=== PATIENT | male | born 1995 | race Caucasian/White ===

== ENCOUNTER 2019-06-15 16:07 | Emergency (ER) | payer OTHER ==
--- NOTE | 2019-06-15 18:25 | EDM.PDOC ---
ED HPI GENERAL MEDICAL PROBLEM - General Chief Complaint: General Time Seen by Provider: 06/15/19 16:45 Source of Information: Reports: Patient History Limitations: Reports: No Limitations - History of Present Illness INITIAL COMMENTS - FREE TEXT/NARRATIVE: c/o unintended ejaculation pt in class at college PM, he had the urge to void, he waited 30 minutes until the end of class, then had a strong urge, he went to the bathroom and noted semen on the floor as well as small amount in his underclothes, did not void urine states he did not have an erection had a small amount of urine prior to to class has not had urinary sxs or problems in the past is on Clomid x 6m "to increase my testosterone levels", on 1 tab daily (thinks they are 200 mg) and "my levels were too high" which pt understands to be his testosterone leves, Clomid dec'd to 1/2 tab qMon and Fri says he is a virgin, no prior erection problems, last ejaculation 2m ago he did save semen 4y ago prior chemo, and then in the past year apparently had decreased sperm counts in his semen, hence the Clomid 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, over the next yr he had several brain surgeries at [facility] and at least one round of chemo (in [place]) states he has been in remission ever since, he got MRIs q3m for surveillance, then q6m, thinks he may be down to a q12m routine last [facility] apt 6m ago, next apt next yr sometime says he is forgetful at times, denies other sxs related to his cancer, which he says had probably been there since childhood 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" and was "in the midline", does not think his pituitary was involved - Related Data Allergies Allergy/AdvReac Type Severity Reaction Status Date / Time No Known Allergies Allergy Verified 06/15/19 16:49 Home Meds: Home Meds Cholecalciferol (Vitamin D3) [Vitamin D3] 10,000 unit PO DAILY 06/15/19 [History ] Lacosamide [Vimpat] 150 mg PO BID 06/15/19 [History] Modafinil 200 mg PO BID 06/15/19 [History] Multivitamin [Multi-Vitamin Daily] 1 tab DAILY 06/15/19 [History] Venlafaxine [Effexor] 37.5 mg PO DAILY 06/15/19 [History] clomiPRAMINE HCl [Anafranil] 12.5 mg PO MOFR 06/15/19 [History] Past Medical History Musculoskeletal History: Reports: Fracture Other Musculoskeletal History: hx fx toe Neurological History: Reports: Seizure, Other (See Below) Other Neuro History: hx brain tumor germ-cell teratoma, Psychiatric History: Reports: Anxiety, Depression, Panic Attack, Suicidal Ideation Hematologic History: Reports: Blood Transfusion(s) Oncologic (Cancer) History: Reports: Brain Other Oncologic History: germ cell teratoma - Past Surgical History HEENT Surgical History: Reports: Eye Surgery Other HEENT Surgeries/Procedures: eye surgery x 2 GI Surgical History: Reports: Other (See Below) Other GI Surgeries/Procedures: hx feeding tube Oncologic Surgical History: Reports: Other (See Below) Other Oncologic Surgeries/Procedures: hx brain surgery x 8-10 Social & Family History - Family History Family Medical History: Noncontributory - Tobacco Use Smoking Status *Q: Never Smoker - Caffeine Use Caffeine Use: Reports: Soda - Alcohol Use Days Per Week of Alcohol Use: 2 Number of Drinks Per Day: 2 Total Drinks Per Week: 4 - Recreational Drug Use Recreational Drug Use: No ED ROS GENERAL - Review of Systems Review Of Systems: See Below Constitutional: Reports: No Symptoms HEENT: Reports: No Symptoms Respiratory: Reports: No Symptoms Cardiovascular: Reports: No Symptoms Endocrine: Reports: No Symptoms GI/Abdominal: Reports: No Symptoms : Reports: Discharge Musculoskeletal: Reports: No Symptoms Skin: Reports: No Symptoms Neurological: Reports: No Symptoms Psychiatric: Reports: No Symptoms Hematologic/Lymphatic: Reports: No Symptoms Immunologic: Reports: No Symptoms ED EXAM, GENERAL - Physical Exam Exam: See Below Exam Limited By: No Limitations General Appearance: Alert, WD/WN, No Apparent Distress Nose: Normal Inspection, Normal Mucosa, No Blood Neck: Normal Inspection Respiratory/Chest: No Respiratory Distress Cardiovascular: Regular Rate, Rhythm GI/Abdominal: Soft Extremities: Normal Inspection Neurological: Alert, CN II-XII Intact, Normal Cognition, No Motor/Sensory Deficits Psychiatric: Anxious Skin Exam: Warm, Dry, Intact, Normal Color, No Rash Course - Vital Signs Last Recorded V/S: Last Vital Signs Temp 36.7 C 06/15/19 16:45 Pulse 102 H 06/15/19 16:45 Resp 18 06/15/19 16:45 BP 154/94 H 06/15/19 16:45 Pulse Ox 100 06/15/19 16:45 - Orders/Labs/Meds Labs: Laboratory Tests 06/15/19 06/15/19 06/15/19 Range/Units 18:05 18:05 18:05 WBC 5.5 (4.5-12.0) X10-3/uL RBC 4.89 (4.30-5.75) x10(6)uL Hgb 15.3 (13.5-17.8) g/dL Hct 45.1 (30.0-51.3) % MCV 92.3 (80-96) fL MCH 31.3 (27.7-33.6) pg MCHC 33.9 (32.2-35.4) g/dL RDW 12.3 (11.5-15.5) % Plt Count 220 (125-369) X10(3)uL MPV 8.0 (7.4-10.4) fL Neut % (Auto) 65.2 (46-82) % Lymph % (Auto) 23.9 (13-37) % [place] % (Auto) 8.8 (4-12) % Eos % (Auto) 1 (1.0-5.0) % Baso % (Auto) 1 (0-2) % Neut # (Auto) 3.6 (1.6-8.3) # Lymph # (Auto) 1.3 (0.6-5.0) # [place] # (Auto) 0.5 (0.0-1.3) # Eos # (Auto) 0.1 (0.0-0.8) # Baso # (Auto) 0.0 (0.0-0.2) # Sodium 140 (135-145) mmol/L Potassium 3.9 (3.5-5.3) mmol/L Chloride 102 (100-110) mmol/L Carbon Dioxide 26 (21-32) mmol/L BUN 14 (7-18) mg/dL Creatinine 1.3 (0.70-1.30) mg/dL Est Cr Clr Drug Dosing 107.73 mL/min Estimated GFR (MDRD) > 60 (>60) BUN/Creatinine Ratio 10.8 (9-20) Glucose 92 (80-116) mg/dL Calcium 9.7 (8.6-10.2) mg/dL Total Bilirubin 0.3 (0.1-1.3) mg/dL AST 34 H (5-25) IU/L ALT 68 H (12-36) U/L Alkaline Phosphatase 110 (56-112) IU/L C-Reactive Protein < 0.2 L (0.5-0.9) mg/dL Total Protein 7.7 (6.0-8.0) g/dL Albumin 4.3 (3.5-5.2) g/dL Globulin 3.4 g/dL Albumin/Globulin Ratio 1.3 Urine Color (YELLOW) Urine Appearance (CLEAR) Urine pH (5.0-6.5) Ur Specific [place] (1.010-1.025) Urine Protein (NEGATIVE) mg/dL Urine Glucose (UA) (NORMAL) mg/dL Urine Ketones (NEGATIVE) mg/dL Urine Occult Blood (NEGATIVE) Urine Nitrite (NEGATIVE) Urine Bilirubin (NEGATIVE) Urine Urobilinogen (NEGATIVE) mg/dL Ur Leukocyte Esterase (NEGATIVE) Urine RBC (0-5) Urine WBC (0-5) Ur Squamous Epith Cells (NS,R,O) Amorphous Sediment Urine Bacteria (NS) 06/15/19 Range/Units 19:15 WBC (4.5-12.0) X10-3/uL RBC (4.30-5.75) x10(6)uL Hgb (13.5-17.8) g/dL Hct (30.0-51.3) % MCV (80-96) fL MCH (27.7-33.6) pg MCHC (32.2-35.4) g/dL RDW (11.5-15.5) % Plt Count (125-369) X10(3)uL MPV (7.4-10.4) fL Neut % (Auto) (46-82) % Lymph % (Auto) (13-37) % [place] % (Auto) (4-12) % Eos % (Auto) (1.0-5.0) % Baso % (Auto) (0-2) % Neut # (Auto) (1.6-8.3) # Lymph # (Auto) (0.6-5.0) # [place] # (Auto) (0.0-1.3) # Eos # (Auto) (0.0-0.8) # Baso # (Auto) (0.0-0.2) # Sodium (135-145) mmol/L Potassium (3.5-5.3) mmol/L Chloride (100-110) mmol/L Carbon Dioxide (21-32) mmol/L BUN (7-18) mg/dL Creatinine (0.70-1.30) mg/dL Est Cr Clr Drug Dosing mL/min Estimated GFR (MDRD) (>60) BUN/Creatinine Ratio (9-20) Glucose (80-116) mg/dL Calcium (8.6-10.2) mg/dL Total Bilirubin (0.1-1.3) mg/dL AST (5-25) IU/L ALT (12-36) U/L Alkaline Phosphatase (56-112) IU/L C-Reactive Protein (0.5-0.9) mg/dL Total Protein (6.0-8.0) g/dL Albumin (3.5-5.2) g/dL Globulin g/dL Albumin/Globulin Ratio Urine Color Yellow (YELLOW) Urine Appearance Clear (CLEAR) Urine pH 9.0 H (5.0-6.5) Ur Specific [place] 1.015 (1.010-1.025) Urine Protein Negative (NEGATIVE) mg/dL Urine Glucose (UA) Normal (NORMAL) mg/dL Urine Ketones 15 H (NEGATIVE) mg/dL Urine Occult Blood Negative (NEGATIVE) Urine Nitrite Negative (NEGATIVE) Urine Bilirubin Negative (NEGATIVE) Urine Urobilinogen Normal (NEGATIVE) mg/dL Ur Leukocyte Esterase Negative (NEGATIVE) Urine RBC 0-5 (0-5) Urine WBC 0-5 (0-5) Ur Squamous Epith Cells Occasional (NS,R,O) Amorphous Sediment Moderate Urine Bacteria Rare H (NS) - Re-Assessments/Exams Free Text/Narrative Re-Assessment/Exam: 06/15/19 19:54 labs neg, dairy lab technician confirmed that there are no sperm in semen, hx is uncertain, not clear whether he had a true ejaculation, has had a hx of memory issues, does have a far amount of anxiety re this issue, no immediate need to f/u up with [facility] or check hormone levels altho he should discuss this issue at his next [facility] appointment Departure - Departure Time of Disposition: 19:50 Disposition: Home, Self-Care 01 Condition: Good Clinical Impression: Abnormal ejaculation - Discharge Information *PRESCRIPTION DRUG MONITORING PROGRAM REVIEWED*: Not Applicable *COPY OF PRESCRIPTION DRUG MONITORING REPORT IN PATIENT CIELO: Not Applicable Forms: ED Department Discharge Additional Instructions: Your tests here all look good. You have mild elevation of 2 of your liver enzymes which likely is chronic. Continue current meds and activities. Take your tests results with you to your next appointment at [facility]. Return to ED or see your local physician if you have additional symptoms or concerns.
== END 2019-06-15 20:00 | disposition home or self-care (01) ==
LOC: FB.ED 16:07
DX: N53.19 Other ejaculatory dysfunction (principal); G40.909 Epilepsy, unspecified, not intractable, without status epilepticus; F32.9 Major depressive disorder, single episode, unspecified; Z79.899 Other long term (current) drug therapy
CPT/HCPCS: 36415; 80053; 81001; 85025; 86140; 99283